=== PATIENT | male | born 1975 | race Two or more races ===

== ENCOUNTER 2017-12-27 19:37 | Emergency (ER) | payer SELFPAY ==
[2017-12-27 20:30] VITALS: BP 132/82; PULSE 82; RESP 16; TEMP 98.3; O2SAT 98
--- NOTE | 2017-12-27 20:38 | ED PDOC ---
HPI: Psych/Substance Abuse Time Seen by Provider: 12/27/17 19:55 Chief Complaint (Nursing): Alcohol Ingestion Chief Complaint (Provider): Alcohol Ingestion History Per: Patient History/Exam Limitations: no limitations Onset/Duration Of Symptoms: Hrs Current Symptoms Are (Timing): Still Present Associated Symptoms: denies: Suicidal Thoughts Additional Complaint(s): Iam Michelle is a 42 year old male with no past medical history who was brought to the ED by EMS for evaluation of alcohol intoxication, onset prior to arrival. Patient admits to drinking heavily but states that he is mostly exhausted from work. He reports that his was going to pick him up but EMS brought him to the ED instead. Patient states that he has no medical complaints and denies any suicidal or homicidal ideation. PMD: none provided Past Medical History Reviewed: Historical Data, Nursing Documentation, Vital Signs Vital Signs: Last Vital Signs Temp 98.3 F 12/27/17 20:29 Pulse 82 12/27/17 20:29 Resp 16 12/27/17 20:29 BP 132/82 12/27/17 20:29 Pulse Ox 98 12/27/17 20:29 - Medical History PMH: No Chronic Diseases - Surgical History Surgical History: No Surg Hx - Family History Family History: States: Unknown Family Hx - Social History Current smoker - smoking cessation education provided: No Alcohol: Social Drugs: Denies - Allergies Allergies/Adverse Reactions: Allergies Allergy/AdvReac Type Severity Reaction Status Date / Time No Known Allergies Allergy Verified 12/27/17 19:48 Review of Systems ROS Statement: Except As Marked, All Systems Reviewed And Found Negative Psych: Negative for: Suicidal ideation, Other (homicidal ideation) Physical Exam - Reviewed Nursing Documentation Reviewed: Yes Vital Signs Reviewed: Yes - Physical Exam Appears: Positive for: Non-toxic, No Acute Distress (intoxicated appearing) Head Exam: Positive for: ATRAUMATIC, NORMAL INSPECTION, NORMOCEPHALIC Skin: Positive for: Normal Color Eye Exam: Positive for: EOMI, Normal appearance, PERRL ENT: Positive for: Normal ENT Inspection Neck: Positive for: Normal, Painless ROM Cardiovascular/Chest: Positive for: Regular Rate, Rhythm. Negative for: Murmur Respiratory: Positive for: Normal Breath Sounds. Negative for: Respiratory Distress Gastrointestinal/Abdominal: Positive for: Normal Exam, Soft. Negative for: Tenderness Back: Positive for: Normal Inspection Extremity: Positive for: Normal ROM. Negative for: Deformity, Swelling Neurologic/Psych: Positive for: Alert, Oriented (x3), Gait (steady). Negative for: Motor/Sensory Deficits - ECG O2 Sat by Pulse Oximetry: 98 (RA) Pulse Ox Interpretation: Normal Medical Decision Making Medical Decision Making: Time: 20:00 Impression: 42 year old male presenting with alcohol intoxication Plan: --No trauma seen --Patient is alert and oriented x3 and also intoxicated --Patient is stable for discharge based on current conditions --He states that he will take a cab home to [place] Scribe Attestation: Documented by Lena Li, acting as a scribe for Yao Art MD. Provider Scribe Attestation: All medical record entries made by the Scribe were at my direction and personally dictated by me. I have reviewed the chart and agree that the record accurately reflects my personal performance of the history, physical exam, medical decision making, and the department course for this patient. I have also personally directed, reviewed, and agree with the discharge instructions and disposition. Disposition - Clinical Impression Clinical Impression: Alcohol abuse - Disposition Referrals: Alcoholics Anonymous [Outside] Disposition Time: 20:00 Condition: STABLE Instructions: Alcohol Abuse and Alcoholism (DC) Forms: [employer] Online 401 (Maltese) Print Language: VIETNAMESE
== END 2017-12-27 20:00 | disposition home or self-care (01) ==
LOC: H.ER 19:37
DX: F10.129 Alcohol abuse with intoxication, unspecified (principal)